=== PATIENT | female | born 1980 | race Caucasian/White ===

== ENCOUNTER 2020-07-08 20:26 | Emergency (ER) | payer BC, OTHER ==
[2020-07-08 21:40] LABS: BASOPHILS % (AUTO) 0.8 % (0.0-5.0); EOSINOPHILS % (AUTO) 7.5 % (0.0-8.0); HEMATOCRIT 39.2 % (36-48); MEAN CORPUSCULAR HEMOGLOBIN 29.7 pg (27.0-33.0); MEAN CORPUSCULAR HGB CONC 33.4 g/dL (32.0-36.0); MEAN CORPUSCULAR VOLUME 88.9 fL (79-99); MONOCYTES % (AUTO) 7.2 % (3.0-13.0); NEUTROPHILS % (AUTO) 55.3 % (40.0-77.0); PLATELET COUNT (AUTO) 180 K/uL (130-400); RED BLOOD CELL COUNT(AUTO) 4.41 MIL/uL (4.00-5.50); RED CELL DISTRIBUTION WIDTH 12.6 % (11.0-15.5)
[2020-07-08] MEDS ORDERED: CEFTRIAXONE SODIUM 1 GM ONE (21:41)
[2020-07-08 21:53] LABS: POTASSIUM 3.7 mmol/L (3.5-5.1)
== END 2020-07-08 22:21 | disposition home or self-care (01) ==
LOC: EDH 20:26
DX: L03.116 Cellulitis of left lower limb (principal); Z91.018 Allergy to other foods; Z88.8 Allergy status to other drugs, medicaments and biological substances; Z98.890 Other specified postprocedural states
CPT/HCPCS: 36415; 73610; 80048; 81025; 85025; 96374; 99284; J0696